=== PATIENT | male | born 1930 | race Caucasian/White ===

== ENCOUNTER 2017-10-19 12:59 | Outpatient (CLI) | payer MEDICARE, OTHER ==
--- NOTE | 2017-10-19 15:12 | RAD ---
PA AND LATERAL CHEST: History: Dyspnea. FINDINGS: Comparison made with exam of 10-19-16. Changes of median sternotomy again seen. The heart size is normal. There is continued elevation of th e left hemidiaphragm. Chronic changes are stable in the lung mercer bilaterally. No lobar consolidation, pneumothorax, or pleural effusions are seen. No acute osseous abnormalities a re noted. IMPRESSION: Stable exam. No acute process. POS: C
== END 2017-10-19 13:00 | disposition home or self-care (01) ==
LOC: RAD 12:59
PROVIDERS: ATTEND Internal Medicine Critical Care Medicine
DX: R06.00 Dyspnea, unspecified (principal)
CPT/HCPCS: 71020